=== PATIENT | female | born 1955 | race African-American/Black ===

== ENCOUNTER → 2017-03-20 | Outpatient (CLI) | payer OTHER ==
[~2017-03-20] MED LIST: PERCOCET 5-3251 TAB PO; TYLENOL EXTRA500 M1 PO
--- NOTE | ~2017-03-20 | US128 ---
[id number] [facility] [address] [place], [place] [address] [id number] O MR#: [id number] Acc #: [id number] NAME: KALEB MIKE : 1955 SEX: F STUDY DATE/TIME: 03/20/2017 15:13 UNIT: [facility]US ROOM: STUDY DESCRIPTION: Thyroid Attending Physician: Terrie Pastrana M.D. Referring Physician: Terrie Pastrana M.D. Ordering Physician: Terrie Pastrana M.D. Primary Care Physician: Terrie Pastrana M.D. MEDICAL IMAGING REPORT This report is preliminary unless electronic signature is present EXAM Thyroid ultrasound 03/20/2017 HISTORY Enlarged thyroid on physical examination, thyromegaly, 03/20/2017. Fatigue for 3 months. FINDINGS The right thyroid lobe measured 6.7 cm x 4.4 cm x 3.8 cm, while the left lobe measured 9.3 cm x 3.5 cm x 3.8 cm. The isthmus measures approximately 1 cm in the AP direction. Both thyroid lobes are diffusely heterogeneous in echotexture and demonstrate no discrete cystic or solid nodules. There are no masses extrinsic to the thyroid. Normal blood flow is seen throughout both thyroid lobes. IMPRESSION Diffusely enlarged heterogeneous thyroid demonstrating no discrete cystic or solid nodules. Dictated by... Jacky Irvin M.D. THIS IS AN ELECTRONICALLY VERIFIED REPORT Jacky Irvin M.D. at 03/21/2017 6:18 AM AUBREY/dawit TD: 03/20/2017 17:08 JOB #: [id number] MEDICAL IMAGING REPORT Page 1 of 1 COPY
== END | disposition home or self-care (01) ==
LOC: CGUS 13:30
DX: E04.9 Nontoxic goiter, unspecified (principal)
CPT/HCPCS: 76536